=== PATIENT | male | born 1995 | race Caucasian/White ===

== ENCOUNTER → 2020-12-05 | Outpatient (CLI) | payer OTHER ==
[~2020-12-05] MED LIST: ALLERGY RELIEF PO; AMLODIPINE BES2.5 MG PO; COLACE100 MG PO; GLYCOPYRROL PO; NORCO 7.5-3251 EACH PO
== END ==
LOC: KOH-I 15:58
DX: R50.9 Fever, unspecified (principal); R10.9 Unspecified abdominal pain
CPT/HCPCS: 71046; 74019

== ENCOUNTER → 2020-12-09 | Outpatient (CLI) | payer OTHER | LOC: CT 11:37 | DX: R12 Heartburn (principal); R50.9 Fever, unspecified; R19.7 Diarrhea, unspecified; R10.84 Generalized abdominal pain | CPT/HCPCS: Q9967 ==

== ENCOUNTER → 2020-12-23 | Outpatient (CLI) | payer OTHER ==
[2020-12-23 15:11] LABS: HEMOGLOBIN 15.6 gm/dl (14.0-17.5); RED BLOOD COUNT 5.27 M/UL (4.20-5.50); WHITE BLOOD COUNT 6.3 K/UL (4.5-11.0)
[2020-12-23 15:32] LABS: BUN/CREATININE RATIO 17 (0-10)
== END ==
LOC: LAB 14:40
PROVIDERS: Internal Medicine
DX: I10 Essential (primary) hypertension (principal); R61 Generalized hyperhidrosis; R12 Heartburn; R19.7 Diarrhea, unspecified; R10.9 Unspecified abdominal pain
CPT/HCPCS: 36415; 80053; 83735; 85025

== ENCOUNTER → 2021-08-24 | Day surgery (SDC) | payer OTHER ==
[~2021-08-24] MED LIST changes: +HYDROCHLOROTH12.5 M1 PO; +[UNRECOGNIZED DRUG - OTHER] PO
== END | disposition home or self-care (01) ==
LOC: OR 07:13
DX: K52.9 Noninfective gastroenteritis and colitis, unspecified (principal); I10 Essential (primary) hypertension; K21.9 Gastro-esophageal reflux disease without esophagitis; Z87.891 Personal history of nicotine dependence; Z79.899 Other long term (current) drug therapy; Z82.49 Family history of ischemic heart disease and other diseases of the circulatory system; Z80.1 Family history of malignant neoplasm of trachea, bronchus and lung
CPT/HCPCS: J2704; J7120

== ENCOUNTER 2021-09-07 13:09 | Emergency (ER) | payer OTHER | END 2021-09-07 14:55 | disposition home or self-care (01) | LOC: ER1 13:09 | DX: J06.9 Acute upper respiratory infection, unspecified (principal); Z20.822 Contact with and (suspected) exposure to COVID-19; I10 Essential (primary) hypertension | CPT/HCPCS: 99283; U0002 ==

== ENCOUNTER → 2021-12-26 | Outpatient (CLI) | payer OTHER | LOC: SLEEP 12:09 | DX: R29.818 Other symptoms and signs involving the nervous system (principal) | CPT/HCPCS: 95810 ==